=== PATIENT | female | born 1945 | race Caucasian/White ===

== ENCOUNTER → 2017-05-01 | Outpatient (CLI) | payer MEDICARE ==
--- NOTE | 2017-05-02 11:05 | MM ---
Reason for exam: screening (asymptomatic). Last mammogram was performed 1 year and 4 months ago. History: Patient is postmenopausal. Physical Findings: A clinical breast exam by your physician is recommended on an annual basis and results should be correlated with mammographic findings. MG 3D Screening Mammo W/Cad Bilateral CC and MLO view(s) were taken. Prior study comparison: December 21, 2015, bilateral MG 3d screening mammo w/cad. July 31, 2003, bilateral screening mammogram. The breast tissue is almost entirely fat. Finding: There are typically benign round, grouped/clustered calcifications in the upper quadrant, middle, central position of the right breast stable since 2012. There is no discrete abnormality. ASSESSMENT: Benign, BI-RAD 2 RECOMMENDATION: Routine screening mammogram of both breasts in 1 year.
== END | disposition home or self-care (01) ==
LOC: RADMAMWWP 09:18
PROVIDERS: ATTEND Internal Medicine Geriatric Medicine
DX: Z12.31 Encounter for screening mammogram for malignant neoplasm of breast (principal)
CPT/HCPCS: 77063; 77067

== ENCOUNTER → 2018-08-09 | Outpatient (CLI) | payer MEDICARE ==
--- NOTE | 2018-08-13 13:43 | MM ---
Reason for exam: screening (asymptomatic). Last mammogram was performed 1 year and 3 months ago. History: Patient is postmenopausal. Physical Findings: A clinical breast exam by your physician is recommended on an annual basis and results should be correlated with mammographic findings. MG 3D Screening Mammo W/Cad Bilateral CC and MLO view(s) were taken. Prior study comparison: May 01, 2017, bilateral MG 3d screening mammo w/cad. December 21, 2015, bilateral MG 3d screening mammo w/cad. The breast tissue is almost entirely fat. Finding: There are grouped/clustered, course calcifications in the upper outer quadrant, middle position of the right breast. No significant changes in finding since May 01, 2017 and December 21, 2015. ASSESSMENT: Benign, BI-RAD 2 RECOMMENDATION: Routine screening mammogram of both breasts in 1 year.
== END ==
LOC: RADMAMWWP 09:28
PROVIDERS: ATTEND Internal Medicine Geriatric Medicine
DX: Z12.31 Encounter for screening mammogram for malignant neoplasm of breast (principal)
CPT/HCPCS: 77063; 77067

== ENCOUNTER → 2019-10-29 | Outpatient (CLI) | payer MEDICARE ==
--- NOTE | 2019-10-29 13:12 | ECHOS ---
STRESS ECHOCARDIOGRAM LUMASON: 1 Vial INDICATIONS: Chest pain, palpitations. MEDICATIONS: BASELINE HEART RATE: 71 BASELINE BLOOD PRESSURE: 129/59 MAXIMUM HEART RATE: 133 MAXIMUM BLOOD PRESSURE: 196/85 85% MPHR: 127 100% MPHR: 149 METS: 9.1 MAXIMUM STAGE REACHED: 3 TOTAL EXERCISE TIME: 7:30 CLINICAL INFORMATION: This is an exercise stress echo for chest pain and palpitations and baseline heart rate 71 beats per minute. Baseline blood pressure 129/59 mmHg. Baseline 12-lead ECG shows sinus rhythm with ST elevation inferolaterally and occasional PVCs with the left bundle branch block morphology. Patient exercised on a Fer protocol for 7 minutes 30 seconds achieving a peak heart rate of 133 beats per minute. Peak blood pressure 196/80 mmHg. There was no ECG evidence for ischemia. PVCs were noted during peak exercise. No nonsustained ventricular tachycardia noted. The baseline 2D echo images showed normal LV size and systolic function without segmental wall motion abnormalities. Echo contrast was used. At peak exercise, there was excellent augmentation of overall LV contractility without developing any wall motion abnormalities. At recovery regional global LV systolic function remained normal. IMPRESSION: 1. Average exercise capacity on a Fer protocol. 2. Frequent PVCs noted during exercise without any nonsustained ventricular tachycardia. 3. No ECG or echocardiographic evidence for ischemia. MMODL / IJN: [id number] /
== END | disposition home or self-care (01) ==
LOC: RADNMMAIN 09:33
PROVIDERS: ATTEND Internal Medicine Geriatric Medicine
DX: I49.3 Ventricular premature depolarization (principal)
CPT/HCPCS: C8930; Q9950; 93351

== ENCOUNTER → 2020-07-26 | Outpatient (CLI) | payer MEDICARE ==
--- NOTE | 2020-07-26 09:38 | BD ---
EXAMINATION TYPE: Axial Bone Density DATE OF EXAM: 07/26/2020 COMPARISON: 12/21/2015 CLINICAL HISTORY: Height: 63.5 IN Weight: 188 LBS FRAX RISK QUESTIONS: Family History (Parent hip fracture): UNKNOWN RISK FACTORS HISTORY OF: Active: YES Diet low in dairy products/other sources of calcium: YES Postmenopausal woman: AGE 55 MEDICATIONS: Thyroid Medications: YES Which medication: Levothyroxine How Lon+ YEARS Additional Medications: LEVOTHYROXINE, DIABETIC MEDS, ATENOLOL, CHOLESTEROL MEDS, EXAM MEASUREMENTS: Bone mineral densitometry was performed using the [employer] System. Bone mineral density as measured about the Lumbar spine is: ----- L1-L4(G/cm2): 1.203 T Score Values are as follows: ----- L2: 0.0 ----- L3: 1.0 ----- L4: 0.2 ----- L1-L4: 0.2 Bone mineral density has: Increased 2.4% since study of: 12/21/2015 Bone mineral density about the R hip (g/cm2): 0.831 Bone mineral density about the L hip (g/cm2): 0.822 T Score values are as follows: -----R Neck: -1.5 -----L Neck: -1.6 -----R Total: -0.1 -----L Total: -0.2 Bone mineral density has: Increased 0.4% since study of: 12/21/2015 IMPRESSION: Normal (Values between +1 and -1 indicate normal bone mass). Consider repeating this study in 5 year s or sooner if there is some new clinical indication. NOTE: T-SCORE=SD OF THE YOUNG ADULT MEAN.
--- NOTE | 2020-07-27 11:33 | MM ---
Reason for exam: screening (asymptomatic). Last mammogram was performed 2 years ago. History: Patient is postmenopausal. Physical Findings: A clinical breast exam by your physician is recommended on an annual basis and results should be correlated with mammographic findings. MG 3D Screening Mammo W/Cad Bilateral CC and MLO view(s) were taken. Prior study comparison: August 09, 2018, bilateral MG 3d screening mammo w/cad. May 01, 2017, bilateral MG 3d screening mammo w/cad. There are scattered fibroglandular densities. Stable benign calcifications. There is no discrete abnormality. No significant changes when compared with prior studies. ASSESSMENT: Benign, BI-RAD 2 RECOMMENDATION: Routine screening mammogram of both breasts in 1 year.
== END | disposition home or self-care (01) ==
LOC: RADMAMWWP 07:30
PROVIDERS: ATTEND Internal Medicine Geriatric Medicine
DX: Z12.31 Encounter for screening mammogram for malignant neoplasm of breast (principal); Z78.0 Asymptomatic menopausal state
CPT/HCPCS: 77063; 77067; 77080

== ENCOUNTER → 2023-03-30 | Outpatient (CLI) | payer MEDICARE ==
--- NOTE | 2023-03-30 13:10 | MM ---
Reason for Exam: Screening (asymptomatic). Last mammogram was performed 2 year(s) and 8 month(s) ago. Patient History: Menarche at age 16. First Full-Term at age 23. Postmenopausal. Patient has history of breast feeding. Risk Values: Anai 5 year model risk: 1.4%. NCI Lifetime model risk: 3.1%. Prior Study Comparison: 05/01/2017 Bilateral Screening Mammogram, [facility]. 08/09/2018 Bilateral Screening Mammogram, [facility]. 07/26/2020 Bilateral Screening Mammogram, [facility]. Tissue Density: The breast tissue is almost entirely fat. Findings: Analyzed By CAD. There is no suspicious group of microcalcifications or new suspicious mass. Overall Assessment: Negative, BI-RAD 1 Management: Screening Mammogram of both breasts in [address] [facility] will attempt to contact patient to return for supplemental views and ultrasound if indicated. Patient should continue monthly self-breast exams. A clinical breast exam by your physician is recommended on an annual basis. This exam should not preclude additional follow-up of suspicious palpable abnormalities. Note on Anai scores and lifetime risk: 1. A Anai score greater than 3% is considered moderate risk. If this is the case, consider specialist referral to assess eligibility for a risk reducing agent. 2. If overall lifetime risk for the development of breast cancer is 20% or higher, the patient may qualify for future screening with alternating mammogram and breast MRI. Electronically signed and approved by: Elroy Watson DO
--- NOTE | 2023-04-01 12:06 | BD ---
EXAMINATION TYPE: Axial Bone Density DATE OF EXAM: 03/30/2023 CLINICAL HISTORY: 77 years old Female. ICD-10 CODE: M81.0 OSTEOPOROSIS Height: 64 Weight: 177.6 FRAX RISK QUESTIONS: Alcohol (3 or more units per day): no Family History (Parent hip fracture): no Glucocorticoids (More than 3mos): no (Ex: prednisone, prednisolone, methylprednisolone, dexamethasone, and hydrocortisone). History of Fracture in Adulthood: no Secondary Osteoporosis: 1. Type 1 Diabetes: no 2. Hyperthyroidism: no 3. Menopause before 45: no 4. Malnutrition: no 5. Chronic liver disease: no Rheumatoid Arthritis: no Current Tobacco Use: no RISK FACTORS HISTORY OF: Surgery to Spine/Hip(right/left)/Wrist (right/left): no MEDICATIONS: Thyroid Medications: levothyroxine How Lon years Additional History: EXAM MEASUREMENTS: Bone mineral densitometry was performed using the [employer]. Bone mineral density as measured about the Lumbar spine is: ----- L1-L4(G/cm2): 1.281 T Score Values are as follows: ----- L1: -0.2 ----- L2: -0.7 ----- L3: 2.1 ----- L4: 1.7 ----- L1-L4: 0.8 Z Score Values are as follows: ----- L1: 1.1 ----- L2: 0.5 ----- L3: 3.3 ----- L4: 2.9 ----- L1-L4: 2.1 Bone mineral density has: increased 6.5 % since study of: 2020 Bone mineral density about the R hip (g/cm2): 0.992 Bone mineral density about the L hip (g/cm2): 0.950 T Score values are as follows: -----R Neck: -1.5 -----L Neck: -1.5 -----R Total: -0.1 -----L Total: -0.5 Z Score values are as follows: -----R Neck: 0.1 -----L Neck: 0.1 -----R Total: 1.3 -----L Total: 0.9 Bone mineral density has: decreased -1.5 % since study of: 2020 FRAX%s: The graph provided illustrates a 11.2% chance for a major osteoporotic fx and a 2.3% chance f or the hips probability for fx in 10 years time. IMPRESSION: Osteopenia (T Score between -2.5 and -1). There is slightly increased risk of fracture and the patient may be considered for treatment. Re-Screen 2-5 years. NOTE: T-SCORE=SD OF THE YOUNG ADULT MEAN.
== END | disposition home or self-care (01) ==
LOC: RADBDWWP 09:40
PROVIDERS: ATTEND Internal Medicine Geriatric Medicine
DX: Z12.31 Encounter for screening mammogram for malignant neoplasm of breast (principal); M81.0 Age-related osteoporosis without current pathological fracture; M85.89 Other specified disorders of bone density and structure, multiple sites; Z78.0 Asymptomatic menopausal state
CPT/HCPCS: 77063; 77067; 77080

== ENCOUNTER → 2023-08-31 | Outpatient (CLI) | payer MEDICARE ==
--- NOTE | 2023-09-10 00:35 | P.PCN ---
Date of Procedure: 08/31/23 Operative Findings: Home sleep study testing Date of services 08/31/2023 Pertinent history atient has symptomatic obstructive sleep apnea. Based on AHI is 11 based on the sleep study and the patient was titrated to a CPAP pressure of 12 cm of water. The patient utilizing his CPAP with a pressure of 10 cm of water. Having difficulties with a fullface mask due to oral blisters and ulcerations. She is looking for alternatives. She tried a nasal mask and it seems that she is having some oral leaks with that. I have recommended keeping the same pressure. I increase the humidity up to 6 and set her temperature at 82 F and the patient has a climate line. She is going to try the setting. She is going to go back on a AirFit F20 fullface mask small size. At the same time, I am going to order a home sleep study to evaluate the ongoing presence and need for CPAP therapy especially the patient has lost around 10 pounds over the past few years. Technical description The [employer] system was utilized to complete this home sleep study. Total recording duration was 9 hours and 9 minutes. The study started at 10:21 PM ended at 7:30 AM. There was a total of 8 hours of 55 minutes of flow monitoring and 8 hours and 53 minutes of oxygen saturation monitoring Results the respiratory evaluation showed a total of 44 obstructive apneas and 333 obstructive hypopneas. The resulting AHI was 41.1 consistent with severe obstructive sleep apnea Oxygenation analysis The baseline pulse ox during sleep was 94%. Pulse ox while awake was 96%. Lowest recorded pulse ox was 86% Cardiac summary Average heart rate was 64 with a minimum heart rate of 48 and maximum heart rate of 95 Assessment Severe obstructive sleep apnea with an AHI of 41. The patient continues to have significant degree of obstructive sleep apnea and the patient would benefit from CPAP therapy. Recommend continuing CPAP therapy for now with updated pressures and the patient is going to utilize an AirFit F20 fullface mask. Recommend not to stop CPAP therapy at this point in time as the patient has significant obstructive sleep apnea.
== END ==
LOC: 3 N SLEEP 13:04
PROVIDERS: ATTEND Internal Medicine Critical Care Medicine
DX: G47.33 Obstructive sleep apnea (adult) (pediatric) (principal)